=== PATIENT | female | born 1955 | race Two or more races ===

== ENCOUNTER 2020-04-21 11:14 | Outpatient (AMBR) | payer BC, SELFPAY ==
--- NOTE | 2020-04-21 11:24 | PTNOTE_ITS ---
PT OP Initial Eval Patient Information Visit Reasons: low back pain Medical Diagnosis: M54.5 Treatment Dx #1: LBP Start of Care: 04/21/20 Date of Onset: 2005 Initial Assessment Subjective Pt is 64 yr old female with long Hx of LBP since 2005 she hurt it moving some boxes. Increased pain with lifting, mopping, HH chores. After that she didn't go back to work. Pt denies pain radiating down the LE's. PMH: anxiety Imaging: X-ray of L/s Lumbar levoscoliosis 11 degrees. Moderate disc narrowing L5-S1 Pt goal: less LBP Objective Trunk ArOM: B SB 18 with pain L>R Extension: 20% with pain around L2-3 centrally Flexion: 14 from floor with LBP B rotation: 60% with pain LE strength: B hamstrings: 4-/5 Quads 4-/5 Hip abd/add 4-/5 TTP: moderate L paraspinals L2-5 and lumbar paraspinal atrophy Assessment Pt presents with trunk extension and flexion sensitivity and overlying myofascial pain and spasming around L2-5 centrally. She has lumbar extensor atrophy and pain with prolonged standing. Pt has poor/fair pelvic kinematics and difficulty finding neutral spine. These findings are consistent with lumbar levoscoliosis and DDD. Pt requires skilled therapy in order to decrease pain and improve HH chore tolerance and has fair rehab potential. 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 Ind with HEP 2. Improved standing tolerance to 30 minutes with <=4/10 LBP 3. Pt will improve HH chore tolerance to 30 mins Treatment Plan 1. Manual therapy 2. Therex 3. Modalities as indicated, moist heat, ice, estim Frequency and Duration 2x a week for 6 weeks Certification Dates: 04/21/20 to 07/18/20 Office Procedures PT Procedures PT Date of Service: 04/21/20 OP PT Eval Mod Complex 30 minutes: Yes
--- NOTE | 2020-04-30 19:20 | PT.ODS1RPT ---
PT OP Progress/Discharge Note Date of Service: 04/30/20 Progress Note/DC Note Progress Note/Discharge Note: DC Note Patient Information Visit Reasons: low back pain Service Continue Service or Discharge: Discharge Discharge Date: 04/30/20 Status Assessment: Pt attended the initial evaluation and no showed first two Rx visits on 04/28 and 04/30. Pt never returned or called to schedule a follow-up apt. Pt?s attendance is not consistent enough to make progress with goals. Pt will be D/C'd according to non-compliance with attendance policy. Plan: D/C Office Procedures PT Procedures PT Date of Service: 04/21/20 OP PT Eval Mod Complex 30 minutes: Yes
== END 2020-05-17 23:59 | disposition home or self-care (01) ==
PROVIDERS: PCP Specialist; Referring Provider Specialist; Visit Provider Internal Medicine Rheumatology
DX: M54.5 Low back pain (principal)
CPT/HCPCS: 97162

== ENCOUNTER 2020-06-09 10:03 | Outpatient (AMBR) | payer BC, SELFPAY ==
--- NOTE | 2020-06-09 14:45 | PT.OIERPT ---
PT OP Initial Eval Patient Information Visit Reasons: LOW BACK PAIN Medical Diagnosis: M54.5 Treatment Dx #1: Back Pain Start of Care: 06/09/20 Date of Onset: 6 months ago Initial Assessment Subjective Pt is a 64 y/o female c/o chronic back pain (8/10) worsening several months ago. Pt mention that she did a little therapy prior to this session and TENS was the only thing that really helped her. Pt still has limitation with yardwork, chores, self care, cooking, cleaning, lifting, walking, and prolonged standing. Pt further mention that her provider plans to get a MRI if physical therapy does not help in a few weeks. Objective L/S AROM: all motions are 75 % towards end range with pain in all plane Hip PROM: all motions are WFL Hip MMTs Glute Med: 3/5 Glute Max: 3/5 Hip Flexors: 3-/5 Palpation: TTP L3-L5 facets Assessment Pt demonstrate back pain with mobility deficits leading to decline function. Pt will attempt physical therapy if pain persist Pt will be refer back to provider for further consultation. 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 Goals 1) Increase L/S AROM WFL in 6 wks to be able to perform lifting activities 2) Decrease back pain to 2/10 in 6 wks to be able to sit and stand more than 30 mins 3) Increase core strength WFL in 6 wks to be able to perform yardwork 4) Increase hip MMTs grossly to 4-/5 in 6 wks to be able to ambulate more than 30 mins 5) Indep with HEP Treatment Plan 1) Manual Therapy 2) Therapeutic Activities 3) Therapeutic Exercises 4) Modalities (ice, heat, estim) Frequency and Duration 2 x wk for 6 wks Certification Dates: 06/09/20 to 09/09/20 Office Procedures PT Procedures PT Date of Service: 06/09/20 OP PT Eval Mod Complex 30 minutes: Yes
--- NOTE | 2020-06-22 16:05 | PT.ODS1RPT ---
PT OP Progress/Discharge Note Date of Service: 06/22/20 Progress Note/DC Note Progress Note/Discharge Note: DC Note Patient Information Visit Reasons: LOW BACK PAIN Service Continue Service or Discharge: Discharge Discharge Date: 06/22/20 Status Assessment: Pt only seen for initial evaluation and will be d/c from care per MD's order. According to [facility] Pt's case has been closed and office are not able to make the e-stimulation changes on current authorization. Pt did not meet set goals in therapy, thank you for your referrals Office Procedures PT Procedures PT Date of Service: 06/09/20 OP PT Eval Mod Complex 30 minutes: Yes
== END 2020-06-17 23:59 | disposition home or self-care (01) ==
PROVIDERS: PCP Internal Medicine Rheumatology; Referring Provider Internal Medicine Rheumatology; Visit Provider Internal Medicine Rheumatology
DX: M54.5 Low back pain (principal); G89.29 Other chronic pain; R26.2 Difficulty in walking, not elsewhere classified
CPT/HCPCS: 97162

== ENCOUNTER → 2024-04-18 | Outpatient (CLI) | payer MEDICARE, OTHER, SELFPAY ==
[2024-04-18 12:16] LABS: Basophils % (Auto) 1 % (0-2.5); Eosinophils # (Auto) 0.2 Thou/mm3 (0.0-0.5); Eosinophils % (Auto) 3 % (0-10); Hematocrit 42.8 % (36.0-46.0); Hemoglobin 13.9 g/dL (12.0-16.0); Immature Granulocytes % (Auto) 0 % (0-0); Immature Granulocytes Auto 0.02 Thou/mm3 (0.00-0.00); Lymphocytes # (Auto) 2.4 Thou/mm3 (1.0-4.8); Lymphocytes % (Auto) 36 % (10-50); Mean Corpuscular HGB Conc 32.5 g/dl (31.0-37.0); Mean Corpuscular Hemoglobin 29.8 pg (25.0-35.0); Mean Corpuscular Volume 92 fL (80-100); Monocytes # (Auto) 0.7 Thou/mm3 (0.0-0.8); Monocytes % (Auto) 10 % (0-12); Neutrophils # (Auto) 3.3 Thou/mm3 (1.8-7.7); Neutrophils % (Auto) 50 % (37-80); Nucleated Red Blood Cell % 0 /100 WBC (0); Platelet Count 298 Thou/mm3 (140-440); RDW Standard Deviation 42.8 fL (36.4-46.3); Red Blood Count 4.67 Miln/mm3 (4.00-5.20); White Blood Count 6.6 Thou/mm3 (3.6-11.0)
[2024-04-18 12:45] LABS: Glucose Estimated Average 108 mg/dL (80-131); Hemoglobin A1C 5.4 % Hgb (4.8-6.0)
[2024-04-18 13:01] LABS: Alanine Aminotransferase 19 U/L (10-49); Albumin, Serum 4.8 gm/dL (3.4-4.8); Albumin/Globulin Ratio 1.5 (1.2-2.2); Alkaline Phosphatase 91 U/L (46-116); Anion Gap 10 (7-16); Aspartate Amino Transferase 23 U/L (0-34); BUN/Creatinine Ratio 19 Ratio (12-20); Bilirubin,Total 0.6 mg/dL (0.3-1.2); Blood Urea Nitrogen 15 mg/dL (9-23); Calcium 9.4 mg/dL (8.3-10.6); Calcium (Corrected) 9.4 mg/dL (8.5-10.1); Carbon Dioxide 28.5 mMol/L (20.0-31.0); Chloride 104 mMol/L (98-107); Creatinine (Component) 0.8 mg/dL (0.6-1.3); Globulin 3.1 gm/dL (2.3-3.5); Glucose 91 mg/dL (74-106); Osmolality,Calculated 283 (275-295); Potassium 4.2 mMol/L (3.4-5.1); Sodium 142 mMol/L (136-145); Thyroid Stimulating Hormone 2.81 uIU/mL (0.55-4.78); Total Protein 7.9 gm/dL (5.7-8.2); eGFR > 60 See Note
[2024-04-18 13:16] LABS: Cardiac Risk Estimate 3.8 RATIO (3.7-5.6); Cholesterol 265 mg/dL (132-200); HDL Cholesterol 70 mg/dL (40-60); LDL Cholesterol,Calculated 154 mg/dL (0-130); Triglycerides 207 mg/dL (30-150)
[2024-04-25 06:59] LABS: Vitamin D, 25-OH, D2 <4 ng/mL; Vitamin D, 25-OH, D3 36 ng/mL; Vitamin D, 25-OH, Total 36 ng/mL (30-100)
== END | disposition home or self-care (01) ==
LOC: COPL 11:18
PROVIDERS: PCP Internal Medicine; Referring Provider Physician Assistant; Visit Provider Nurse Practitioner Family
DX: E78.2 Mixed hyperlipidemia (principal); Z79.899 Other long term (current) drug therapy; M81.0 Age-related osteoporosis without current pathological fracture; E55.9 Vitamin D deficiency, unspecified
CPT/HCPCS: 36415; 80053; 80061; 82306; 83036; 84443; 85025

== ENCOUNTER → 2024-05-03 | Outpatient (CLI) | payer MEDICARE, OTHER, SELFPAY ==
--- NOTE | 2024-05-03 11:30 | XR_ITS ---
Examination: Screening digital mammography, bilateral Computer aided detection 3-D breast Tomosynthesis, bilateral Date and time of exam: May 03, 2024 1146 hrs. Compared to mammograms dating to May 22, 2017 Indication: Screening Technique: Nonmagnified MLO, CC views of the breasts to been obtained, reconstructed from 3-D Tomosynthesis images. R2 computer aided detection program utilized for evaluation of suspicious masses and/or abnormal calcifications. 3-D Tomosynthesis images obtained. Findings: The breasts are heterogeneously dense, which may obscure small masses The breast architecture is nodular, bilateral circumscribed breast nodules Breast biopsy markers left breast Multiple calcifications Impression: BI-RADS Category 0: Incomplete: Need additional imaging evaluation Recommend bilateral breast sonography follow-up
== END | disposition home or self-care (01) ==
LOC: CDIM 11:39
PROVIDERS: Referring Provider Nurse Practitioner Family; Visit Provider Nurse Practitioner Family
DX: Z12.31 Encounter for screening mammogram for malignant neoplasm of breast (principal); R92.8 Other abnormal and inconclusive findings on diagnostic imaging of breast
CPT/HCPCS: 77063; 77067

== ENCOUNTER → 2024-06-11 | Outpatient (CLI) | payer MEDICARE, OTHER, SELFPAY ==
--- NOTE | 2024-06-11 11:30 | XR_ITS ---
Examination: Breast ultrasound complete, bilateral Date and time of exam: June 11, 2024 1143 hours INDICATIONS: Mammogram May 03, 2024 bilateral circumscribed breast nodules Technique: Real-time grayscale ultrasonographic imaging bilateral breasts, including all 4 quadrants as well as nipple retroareolar and axillary regions. Findings: Sonographic images right breast Benign cysts, the largest in the 10:00 position 11 x 9 mm No solid nodules Sonographic images left breast Benign cyst 3:00 oval mass circumscribed 5 x 5 mm Retroareolar cyst 5 x 5 mm IMPRESSION: BI-RADS Category 2: Benign findings
== END | disposition home or self-care (01) ==
LOC: CDIM 11:28
PROVIDERS: PCP Internal Medicine; Referring Provider Internal Medicine; Visit Provider Internal Medicine
DX: N60.01 Solitary cyst of right breast (principal); N60.02 Solitary cyst of left breast
CPT/HCPCS: 76641

== ENCOUNTER → 2024-08-29 | Outpatient (CLI) | payer MEDICARE, OTHER, SELFPAY ==
--- NOTE | 2024-08-29 12:00 | XR_ITS ---
Examination: Bone densitometry Date and time of exam:August 29, 2024 1226 hours INDICATIONS: Hysterectomy age 28, cervical spine fracture 2014 Technique: Lumbar spine and hip total bone mineralization values of an calculated. Peak reference and age match control results have been displayed. Findings: Lumbar spine total bone mineralization is0.799 gm/cm2. This is 2.3 standard deviations below peak reference. This is 0.3 standard deviations below age-matched controls. Hip total bone mineralization is 0.757 gm/cm2 This is 1.5 standard deviations below peak reference. This is 0.2 standard deviations below age-matched controls Impression: There is osteopenia based on lumbar spine measurements. There is osteopenia based on hip measurements Lumbar mineralization is increase 0.8% compared with 11/01/2022 Hip mineralization is increased 1.2% compared with August 01, 2022
== END | disposition home or self-care (01) ==
LOC: CDIM 12:03
PROVIDERS: PCP Internal Medicine Rheumatology; Referring Provider Internal Medicine Rheumatology; Visit Provider Internal Medicine Rheumatology
DX: M85.88 Other specified disorders of bone density and structure, other site (principal)
CPT/HCPCS: 77080

== ENCOUNTER → 2024-10-18 | Outpatient (CLI) | payer MEDICARE, OTHER, SELFPAY ==
--- NOTE | 2024-10-18 10:30 | XR_ITS ---
Examination: CT abdomen without intravenous contrast. Coronal 2-D reconstructions. Sagittal 2-D reconstructions. Date and time of exam:October 18, 2024 1110 hours INDICATIONS: Right flank pain beginning 2 months ago, history gallstones CTDI: vol (mGy): 6.39 DLP: (mGycm): 180 Technique: Axial images of the abdomen have been obtained, 3 mm slice thickness, without intravenous contrast 2-D sagittal coronal reconstructions Low dose protocols were performed. One or more of the following dose reduction techniques were used; automated exposure control, adjustment of the mA and/or KV according to patient size, use of iterative reconstruction technique. Findings: Benign liver cysts. Absent gallbladder No pancreatic or adrenal mass Spleen is not enlarged No hydronephrosis or ureteral calculi No bowel obstruction Moderate disc narrowing L4-L5, L5-S1 IMPRESSION: No acute process in the abdomen.
== END | disposition home or self-care (01) ==
LOC: CCTX 10:48
DX: R10.9 Unspecified abdominal pain (principal)
CPT/HCPCS: 74150

== ENCOUNTER → 2025-01-02 | Outpatient (CLI) | payer MEDICARE, OTHER, SELFPAY ==
[2025-01-02 13:31] LABS: Basophils # (Auto) 0.0 Thou/mm3 (0.0-0.2); Basophils % (Auto) 1 % (0-2.5); Eosinophils # (Auto) 0.2 Thou/mm3 (0.0-0.5); Eosinophils % (Auto) 3 % (0-10); Hematocrit 37.7 % (36.0-46.0); Hemoglobin 12.3 g/dL (12.0-16.0); Immature Granulocytes Auto 0.00 Thou/mm3 (0.00-0.00); Lymphocytes # (Auto) 2.2 Thou/mm3 (1.0-4.8); Lymphocytes % (Auto) 36 % (10-50); Mean Corpuscular HGB Conc 32.6 g/dl (31.0-37.0); Mean Corpuscular Hemoglobin 29.9 pg (25.0-35.0); Mean Corpuscular Volume 92 fL (80-100); Monocytes # (Auto) 0.6 Thou/mm3 (0.0-0.8); Monocytes % (Auto) 11 % (0-12); Neutrophils # (Auto) 2.9 Thou/mm3 (1.8-7.7); Neutrophils % (Auto) 49 % (37-80); Nucleated Red Blood Cell # 0.00 Thou/mm3 (0.00-0.00); Nucleated Red Blood Cell % 0 /100 WBC (0); Platelet Count 291 Thou/mm3 (140-440); RDW Standard Deviation 43.1 fL (36.4-46.3); Red Blood Count 4.11 Miln/mm3 (4.00-5.20); White Blood Count 5.9 Thou/mm3 (3.6-11.0)
[2025-01-02 13:38] LABS: Glucose Estimated Average 108 mg/dL (80-131); Hemoglobin A1C 5.4 % Hgb (4.8-6.0)
[2025-01-02 13:44] LABS: Alanine Aminotransferase 11 U/L (10-49); Albumin, Serum 4.6 gm/dL (3.4-4.8); Albumin/Globulin Ratio 1.5 (1.2-2.2); Alkaline Phosphatase 72 U/L (46-116); Anion Gap 9 (7-16); Aspartate Amino Transferase 22 U/L (0-34); BUN/Creatinine Ratio 18 Ratio (12-20); Bilirubin,Total 0.5 mg/dL (0.3-1.2); Blood Urea Nitrogen 14 mg/dL (9-23); Calcium 8.8 mg/dL (8.3-10.6); Calcium (Corrected) 8.8 mg/dL (8.5-10.1); Carbon Dioxide 27.1 mMol/L (20.0-31.0); Cardiac Risk Estimate 3.5 RATIO (3.7-5.6); Chloride 107 mMol/L (98-107); Cholesterol 240 mg/dL (132-200); Creatinine (Component) 0.8 mg/dL (0.6-1.3); Globulin 3.0 gm/dL (2.3-3.5); Glucose 96 mg/dL (74-106); HDL Cholesterol 69 mg/dL (40-60); LDL Cholesterol,Calculated 153 mg/dL (0-130); Osmolality,Calculated 285 (275-295); Potassium 3.8 mMol/L (3.4-5.1); Sodium 143 mMol/L (136-145); Thyroid Stimulating Hormone 1.98 uIU/mL (0.55-4.78); Total Protein 7.6 gm/dL (5.7-8.2); Triglycerides 89 mg/dL (30-150); eGFR > 60 See Note
[2025-01-02 14:06] LABS: Syphilis Nonreactive (Nonreactive)
[2025-01-02 14:21] LABS: Hepatitis A Antibody IgM Non Reactive (Non React); Hepatitis B Core Antibody IgM Non Reactive (Non React); Hepatitis B Surface Antigen Non Reactive (Non React); Hepatitis C Antibody Non Reactive (Non React)
== END | disposition home or self-care (01) ==
PROVIDERS: PCP Internal Medicine; Referring Provider Internal Medicine; Visit Provider Internal Medicine
DX: E78.2 Mixed hyperlipidemia (principal); I10 Essential (primary) hypertension; Z11.3 Encounter for screening for infections with a predominantly sexual mode of transmission
CPT/HCPCS: 36415; 80053; 80061; 80074; 83036; 84443; 85025; 86780